=== PATIENT | male | born 1950 | race Caucasian/White ===

== ENCOUNTER 2025-03-19 20:59 | Emergency (ER) | payer MEDICARE, OTHER ==
[~2025-03-19] VITALS: Ht 182.9 cm; Wt 82.0 kg
[2025-03-20] MEDS ORDERED: HYDR-3713 PO (00:43)
[2025-03-20 01:12] VITALS: BP 136/73; TEMP 97; O2SAT 100
== END 2025-03-20 01:16 | disposition home or self-care (01) ==
LOC: M ED 20:59
DX: S42.031A Displaced fracture of lateral end of right clavicle, initial encounter for closed fracture (principal); W01.0XXA Fall on same level from slipping, tripping and stumbling without subsequent striking against object, initial encounter; Y92.009 Unspecified place in unspecified non-institutional (private) residence as the place of occurrence of the external cause; Y93.9 Activity, unspecified; Y99.9 Unspecified external cause status; Z87.19 Personal history of other diseases of the digestive system

== ENCOUNTER → 2025-03-23 | Outpatient (CLI) | payer MEDICARE, OTHER ==
[~2025-03-23] MED LIST: HYDR-3713 PO
== END ==
LOC: M SOG 06:55
PROVIDERS: ATTEND Orthopaedic Surgery
DX: S42.001A Fracture of unspecified part of right clavicle, initial encounter for closed fracture (principal)